=== PATIENT | male | born 1965 | race African-American/Black ===

== ENCOUNTER 2017-10-18 10:41 | Emergency (ER) | payer MEDICAID, OTHER | END 2017-10-18 11:48 | disposition home or self-care (01) | LOC: ERS 10:41 | DX: R11.2 Nausea with vomiting, unspecified (principal); E11.9 Type 2 diabetes mellitus without complications; I10 Essential (primary) hypertension; F17.210 Nicotine dependence, cigarettes, uncomplicated; Z99.2 Dependence on renal dialysis | CPT/HCPCS: 99283 ==

== ENCOUNTER 2017-12-23 14:13 | Outpatient (CLI) | payer OTHER ==
--- NOTE | 2017-12-23 14:41 | RAD ---
PA AND LATERAL CHEST: History: Productive cough. FINDINGS: Comparison is made with exam dated 07-22-16. The heart is enlarged. The lungs are well expanded without focal areas of consolidation, pneumothorax , renée pulmonary edema or pleural effusions. No acute osseous abnormalities are seen. IMPRESSION: No acute process. POS: OFF
== END 2017-12-23 14:14 | disposition home or self-care (01) ==
LOC: RAD 14:13
PROVIDERS: ATTEND Internal Medicine Nephrology
DX: R05 Cough (principal)
CPT/HCPCS: 71046

== ENCOUNTER 2020-07-30 11:10 | Emergency (ER) | payer OTHER ==
--- NOTE | 2020-07-30 12:06 | RAD ---
Chest one view HISTORY: Chest pain. COMPARISON: 07/22/2016. FINDINGS: Cardiac silhouette is magnified and enlarged. Pulmonary vasculature is unremarkable. Mediastinum is midline. No lobar consolidation or evidence of pneumothorax. IMPRESSION : Cardiomegaly, stable.
[2020-07-30 12:21] LABS: #Basophils 0.1 thou/uL (0.0-0.2); #Eosinphils 0.2 thou/uL (0.0-0.7); #Lymphocytes 1.2 thou/uL (1.20-3.40); #Monocytes 0.6 thou/uL (0.11-0.59); #Neutrophils 4.3 thou/uL (1.40-6.50); %Basophils 0.9 % (0.0-1.0); %Eosinophils 2.4 % (0.0-10.0); %Lymphocytes 19.2 % (21.0-51.0); %Monocytes 9.8 % (0.0-10.0); %Neutrophils 67.7 % (42.0-75.0); Hemoglobin 11.4 g/dL (14.0-18.0); Mean Corpuscular HGB CONC 34.2 g/dL (32.0-36.0); Mean Corpuscular Hemoglobin 29.9 pg (27.0-31.0); Mean Corpuscular Volume 87.5 fL (78.0-98.0); Mean Platelet Volume 7.5 fL (7.4-10.4); Platelet Count 272 thou/uL (130-400); RBC Distribution Width 13.5 % (11.5-14.5); White Blood Cell (WBC) Count 6.4 thou/uL (4.8-10.8)
[2020-07-30 12:25] LABS: ALT (SGPT) 20 U/L (8-55); AST (SGOT) 26 U/L (5-34); Albumin 4.1 g/dL (3.5-5.0); Alkaline Phosphatase 58 U/L (40-110); Anion Gap 20 mmol/L (10-20); BUN (Urea Nitrogen) 52 mg/dL (8.4-25.7); Bilirubin, Total 0.4 mg/dL (0.2-1.2); CK (CPK) 961 U/L (30-200); Calc. Creatinine Clearance 0 mL/min (70-130); Calcium 9.2 mg/dL (7.8-10.44); Carbon Dioxide 26 mmol/L (22-29); Chloride 96 mmol/L (98-107); Estimated GFR-MDRD 5; Globulin 3.4 g/dL (2.4-3.5); Glucose 117 mg/dL (70-105); Potassium 4.4 mmol/L (3.5-5.1); Protein, Total 7.5 g/dL (6.0-8.3); Sodium 138 mmol/L (136-145)
[2020-07-30 12:59] LABS: CKMB 7.3 ng/mL (0-6.6)
== END 2020-07-30 15:05 | disposition left against medical advice (07) ==
LOC: ERS 11:10 → EEVIPCON 11:10 → ERS 15:05
DX: K92.1 Melena (principal); E11.22 Type 2 diabetes mellitus with diabetic chronic kidney disease; I13.2 Hypertensive heart and chronic kidney disease with heart failure and with stage 5 chronic kidney disease, or end stage renal disease; I50.9 Heart failure, unspecified; N18.6 End stage renal disease; R07.89 Other chest pain; Z99.2 Dependence on renal dialysis; F17.210 Nicotine dependence, cigarettes, uncomplicated; Z79.899 Other long term (current) drug therapy
CPT/HCPCS: 36415; 71045; 80053; 82550; 82553; 83880; 84484; 85025; 86850; 86900; 86901; 93005

== ENCOUNTER 2020-12-11 16:26 | Emergency (ER) | payer OTHER ==
--- NOTE | 2020-12-11 17:41 | RAD ---
XR Knee Rt 4 View STANDARD: 12/11/2020 5:25 PM CLINICAL INDICATION: History of stepping off a step and jarring the right knee with right knee pain a nd swelling since COMPARISON: None. FINDINGS: Bones: There is diffuse osteopenia. No definite displaced fracture is evident. Joints: There is mild joint capsular distention. There are small marginal osteophytes affecting the m ajor compartments of the right knee. No definite displaced fracture is evident.. Soft Tissue: There are severe vascular calcifications seen involving the visualized vasculature.. IMPRESSION: No definite acute fracture demonstrated. There is mild joint capsular distention. If there is concern for internal derangement, further evaluation with a nonemergent MRI of the right knee may be helpful.
[2020-12-11] MEDS ORDERED: Acetaminophen/Codeine 30-300mg Tablet ONE (18:51)
== END 2020-12-11 18:50 | disposition home or self-care (01) ==
LOC: ERS 16:26
DX: M25.561 Pain in right knee (principal); E11.9 Type 2 diabetes mellitus without complications; I11.0 Hypertensive heart disease with heart failure; I50.9 Heart failure, unspecified; F17.210 Nicotine dependence, cigarettes, uncomplicated; X50.1XXA Overexertion from prolonged static or awkward postures, initial encounter

== ENCOUNTER 2021-03-11 08:51 | Emergency (ER) | payer OTHER ==
[2021-03-11] MEDS ORDERED: Cyclobenzaprine 10 MG TAB ONE (09:20)
== END 2021-03-11 10:42 | disposition home or self-care (01) ==
LOC: ERS 08:51
DX: S00.93XA Contusion of unspecified part of head, initial encounter (principal); M54.2 Cervicalgia; E11.9 Type 2 diabetes mellitus without complications; I11.0 Hypertensive heart disease with heart failure; I50.9 Heart failure, unspecified; F17.210 Nicotine dependence, cigarettes, uncomplicated; V89.2XXA Person injured in unspecified motor-vehicle accident, traffic, initial encounter
CPT/HCPCS: 70450; 72125

== ENCOUNTER 2021-04-24 16:06 | Emergency (ER) | payer OTHER ==
[2021-04-24] MEDS ORDERED: Oxymetazoline HCl 0.05% (30 ML BOT) ONE (17:43)
== END 2021-04-24 18:35 | disposition home or self-care (01) ==
LOC: ERS 16:06
DX: R04.0 Epistaxis (principal); I13.2 Hypertensive heart and chronic kidney disease with heart failure and with stage 5 chronic kidney disease, or end stage renal disease; E11.22 Type 2 diabetes mellitus with diabetic chronic kidney disease; N18.6 End stage renal disease; J45.909 Unspecified asthma, uncomplicated; I50.9 Heart failure, unspecified; F17.210 Nicotine dependence, cigarettes, uncomplicated; I25.10 Atherosclerotic heart disease of native coronary artery without angina pectoris; Z99.2 Dependence on renal dialysis
CPT/HCPCS: 99283

== ENCOUNTER 2021-05-05 10:52 | Inpatient (IN) | payer OTHER ==
[2021-05-06 03:11] VITALS: BMI 29.6
[2021-05-09 14:51] VITALS: BP 151/74
[2021-05-09 15:32] VITALS: TEMP 98.1
== END 2021-05-09 19:35 | disposition home or self-care (01) | DRG 377 ==
LOC: ERS 10:52 → ERHOLD 12:52 → OBSVTOIN 12:52 → 2NO 21:55
PROVIDERS: ADMIT Family Medicine; ATTEND Family Medicine
PROC: 5A1D70Z Performance of Urinary Filtration, Intermittent, Less than 6 Hours Per Day (ICD-10-PCS; principal; 2021-05-04)
PROC: 0DB78ZX Excision of Stomach, Pylorus, Via Natural or Artificial Opening Endoscopic, Diagnostic (ICD-10-PCS; 2021-05-08)
PROC: 0DBL8ZZ Excision of Transverse Colon, Via Natural or Artificial Opening Endoscopic (ICD-10-PCS; 2021-05-09)
DX: K29.61 Other gastritis with bleeding (principal); N18.6 End stage renal disease; I13.2 Hypertensive heart and chronic kidney disease with heart failure and with stage 5 chronic kidney disease, or end stage renal disease; D62 Acute posthemorrhagic anemia; I50.22 Chronic systolic (congestive) heart failure; B48.8 Other specified mycoses; E11.22 Type 2 diabetes mellitus with diabetic chronic kidney disease; K21.9 Gastro-esophageal reflux disease without esophagitis; I44.0 Atrioventricular block, first degree; F17.210 Nicotine dependence, cigarettes, uncomplicated; K42.9 Umbilical hernia without obstruction or gangrene; D63.1 Anemia in chronic kidney disease; H57.11 Ocular pain, right eye; E11.319 Type 2 diabetes mellitus with unspecified diabetic retinopathy without macular edema; J32.8 Other chronic sinusitis; K64.8 Other hemorrhoids; K63.5 Polyp of colon; E83.52 Hypercalcemia; E83.39 Other disorders of phosphorus metabolism; Z95.5 Presence of coronary angioplasty implant and graft; Z99.2 Dependence on renal dialysis
CPT/HCPCS: 36415; 36416; 70486; 70487; 71045; 78452; 80048; 80053; 80061; 80069; 82553; 82728; 83036; 83540; 83550; 83735; 84100; 84443; 84484; 85025; 85027; 86850; 86900; 86901; 88305; 88342; 90935; 93005; 93017; 94760; 96374; 96375; 96376; A9500; C9113; G0257; G0378; J0289; J0295; J1815; J2248; J2270; J2405; J2704; J2916; J3490; J7070; Q0169; Q5105; Q9967

== ENCOUNTER 2022-07-12 20:05 | Emergency (ER) | payer OTHER ==
[2022-07-12] MEDS ORDERED: Ondansetron PF 4 MG/2 ML Vial ONE (20:14)
[2022-07-12] MEDS ORDERED: Morphine 4 MG/ML VIAL ONE (20:14)
[2022-07-12] MEDS ORDERED: PROPOFOL 20 ML ONE (20:48)
== END 2022-07-12 22:16 | disposition home or self-care (01) ==
LOC: ERS 20:05
DX: K42.0 Umbilical hernia with obstruction, without gangrene (principal); I13.0 Hypertensive heart and chronic kidney disease with heart failure and stage 1 through stage 4 chronic kidney disease, or unspecified chronic kidney disease; E11.22 Type 2 diabetes mellitus with diabetic chronic kidney disease; N18.9 Chronic kidney disease, unspecified; I50.9 Heart failure, unspecified; F17.210 Nicotine dependence, cigarettes, uncomplicated; Z99.2 Dependence on renal dialysis; Z95.5 Presence of coronary angioplasty implant and graft
CPT/HCPCS: 96374; 96375; 99152; J2270; J2405; J2704

== ENCOUNTER 2022-10-06 18:08 | Observation (INO) | payer OTHER ==
[2022-10-06 20:13] LABS: #Eosinphils 0.4 thou/uL (0.0-0.7); #Lymphocytes 1.3 thou/uL (1.20-3.40); #Monocytes 0.6 thou/uL (0.11-0.59); #Neutrophils 7.6 thou/uL (1.40-6.50); %Basophils 0.4 % (0.0-1.0); %Eosinophils 3.7 % (0.0-10.0); %Lymphocytes 13.2 % (21.0-51.0); %Monocytes 6.2 % (0.0-10.0); %Neutrophils 76.6 % (42.0-75.0); Mean Corpuscular HGB CONC 31.6 g/dL (32.0-36.0); Mean Corpuscular Hemoglobin 25.9 pg (27.0-31.0); Mean Corpuscular Volume 82.2 fl (78.0-98.0); Mean Platelet Volume 9.6 fL (7.4-10.4); Platelet Count 225 10x3/uL (130-400); Red Blood Cell (RBC) Count 5.02 mill/uL (4.70-6.10)
[2022-10-06 20:37] LABS: ALT (SGPT) 28 U/L (8-55); AST (SGOT) 53 U/L (5-34); Albumin 4.8 g/dL (3.5-5.0); Alkaline Phosphatase 137 U/L (40-110); Anion Gap 26 mmol/L (10-20); BUN (Urea Nitrogen) 50 mg/dL (8.4-25.7); Bilirubin, Total 0.6 mg/dL (0.2-1.2); Calc. Creatinine Clearance 0 mL/min (70-130); Calcium 10.3 mg/dL (7.8-10.44); Carbon Dioxide 18 mmol/L (22-29); Chloride 99 mmol/L (98-107); Estimated GFR 4; Glucose 84 mg/dL (70-105); Lipase 55 U/L (8-78); Potassium 5.9 mmol/L (3.5-5.1); Protein, Total 8.8 g/dL (6.0-8.3); Sodium 137 mmol/L (136-145)
[2022-10-06] MEDS ORDERED: Labetalol HCl 100 MG TAB ONE (20:44)
[2022-10-06] MEDS ORDERED: HYDROcodone/Acetaminophen 5/325 mg Tablet ONE (20:49)
[2022-10-06] MEDS ORDERED: Diazepam 5 MG TAB ONE (20:49)
[2022-10-06] MEDS ORDERED: Ondansetron ODT 4 MG TAB ONE (21:37)
[2022-10-06] MEDS ORDERED: LOKELMA 10 GM PACKET PO SCH (22:00)
[2022-10-06] MEDS ORDERED: Nitroglycerin 2% Ointment 1 INCH/1 GM Packet ONE (22:01)
[2022-10-06 22:55] LABS: Bacteria/HPF None Seen HPF (None Seen); Bilirubin Negative (Negative); Blood, Urine 1+ (Negative); Clarity Clear (Clear); Glucose, Urine (Dipstick) 100 mg/dL (Negative); Ketone, Urine Negative (Negative); Leukocyte Negative Leu/uL (Negative); Nitrite Negative (Negative); Protein, Urine (Dipstick) 200 mg/dL (Neg-Trace); RBC/HPF 0-3 HPF (0-3); Specific Gravity, Urine 1.011 (1.002-1.036); Squamous Epithelial 0-3 HPF (0-3); Urobilinogen Normal mg/dL (Less than 2); WBC/HPF 0-3 HPF (0-3)
[2022-10-06 22:56] LABS: Sperm/HPF 3+ HPF (None Seen)
[2022-10-06] MEDS ORDERED: Acetaminophen 325 MG TAB PO PRN (23:24)
[2022-10-06] MEDS ORDERED: Ondansetron PF 4 MG/2 ML Vial IVP PRN (23:24)
[2022-10-06] MEDS ORDERED: Ondansetron ODT 4 MG TAB PO PRN (23:24)
[2022-10-07] MEDS ORDERED: tiZANidine HCl 4 MG TAB PO SCH (01:00)
[2022-10-07] MEDS ORDERED: Acetaminophen 325 MG TAB ONE (03:18)
[2022-10-07] MEDS ORDERED: Nitroglycerin 2% Ointment 1 INCH/1 GM Packet ONE (03:43)
[2022-10-07] MEDS ORDERED: Nitroglycerin 2% Ointment 1 INCH/1 GM Packet TOP SCH (04:00)
[2022-10-07 04:58] LABS: Anion Gap 19 mmol/L (10-20); BUN (Urea Nitrogen) 55 mg/dL (8.4-25.7); Calc. Creatinine Clearance 0 mL/min (70-130); Calcium 9.8 mg/dL (7.8-10.44); Carbon Dioxide 24 mmol/L (22-29); Chloride 96 mmol/L (98-107); Estimated GFR 4; Glucose 119 mg/dL (70-105); Potassium 4.4 mmol/L (3.5-5.1); Sodium 135 mmol/L (136-145)
[2022-10-07] MEDS ORDERED: Minoxidil 10 MG TAB PO SCH (09:00)
[2022-10-07] MEDS ORDERED: NIFEdipine XL 30 MG TAB PO SCH (09:00)
[2022-10-07] MEDS ORDERED: NIFEdipine XL 60 MG TAB PO SCH (09:00)
[2022-10-07 09:21] LABS: HBSAg Index 0.42 S/CO (0-0.99); Hep B Core Total Ab Non-Reactive (NonReactive); Hep B Surf Ag Non-Reactive S/CO (NonReactive); Hep C IgG Ab Non-Reactive (NonReactive); Hep C Index 0.13 S/CO (0-0.79)
[2022-10-07 09:29] LABS: HBSAB Concentration 29.59 mIU/mL; Hep B Surf AB Reactive (NonReactive)
[2022-10-07] MEDS ORDERED: Heparin 10,000 UNITS/ 10 ML VIAL ONE (10:23)
[2022-10-07] MEDS: Brimonidine Tartrate 0.2% Ophth Soln 5 ml Bottle EA EYE SCH ×2 (10:53→23:11)
[2022-10-07] MEDS: DorzolamidE/Timolol 2%/0.5% Ophth Soln 10 ml Bottle EA EYE SCH ×2 (10:54→23:29)
[2022-10-07] MEDS: Labetalol HCl 100 MG TAB PO SCH ×2 (10:55→21:29)
[2022-10-07] MEDS: Heparin 5,000 UNITS/ML VIAL SC SCH ×3 (10:55→21:30)
[2022-10-07] MEDS: prednisoLONE 1% Ophth Susp 5 ml Bottle L EYE SCH ×2 (10:56→23:03)
[2022-10-07] MEDS: NIFEdipine XL 30 MG TAB PO SCH (10:56)
[2022-10-07] MEDS: Minoxidil 10 MG TAB PO SCH (10:56)
[2022-10-07] MEDS: Sevelamer Carbonate 800 MG TAB PO SCH ×3 (10:56→21:30)
[2022-10-07] MEDS: Torsemide 100 MG TAB PO SCH (10:57)
[2022-10-07] MEDS: tiZANidine HCl 4 MG TAB PO SCH (10:57)
[2022-10-07] MEDS ORDERED: Dextrose 50% Abboject 50 ML SYRINGE SLOW IVP PRN (11:59)
[2022-10-07] MEDS ORDERED: HumaLOG 300 UNITS/3 ML VIAL SC PRN ×2 (11:59)
[2022-10-07] MEDS ORDERED: Dextrose 5% in Water 1,000 ML IV PRN (11:59)
[2022-10-07] MEDS ORDERED: Gabapentin 300 MG CAP PO SCH (12:15)
[2022-10-07] MEDS ORDERED: Atorvastatin Calcium 40 MG TAB PO SCH (21:00)
[2022-10-08 05:53] LABS: Anion Gap 17 mmol/L (10-20); BUN (Urea Nitrogen) 35 mg/dL (8.4-25.7); Calc. Creatinine Clearance 13 mL/min (70-130); Calcium 9.7 mg/dL (7.8-10.44); Carbon Dioxide 28 mmol/L (22-29); Chloride 93 mmol/L (98-107); Estimated GFR 6; Glucose 97 mg/dL (70-105); Potassium 3.9 mmol/L (3.5-5.1); Sodium 134 mmol/L (136-145)
[2022-10-08 07:21] LABS: #Eosinphils 0.3 thou/uL (0.0-0.7); #Lymphocytes 1.3 thou/uL (1.20-3.40); #Monocytes 0.6 thou/uL (0.11-0.59); #Neutrophils 3.2 thou/uL (1.40-6.50); %Basophils 0.8 % (0.0-1.0); %Eosinophils 5.9 % (0.0-10.0); %Lymphocytes 23.5 % (21.0-51.0); %Monocytes 10.9 % (0.0-10.0); %Neutrophils 58.9 % (42.0-75.0); Hemoglobin 11.9 g/dL (14.0-18.0); Mean Corpuscular HGB CONC 30.6 g/dL (32.0-36.0); Mean Corpuscular Hemoglobin 25.3 pg (27.0-31.0); Mean Corpuscular Volume 82.7 fl (78.0-98.0); Mean Platelet Volume 9.2 fL (7.4-10.4); Platelet Count 259 10x3/uL (130-400); RBC Distribution Width 17.5 % (11.5-14.5); White Blood Cell (WBC) Count 5.4 10x3/uL (4.8-10.8)
[2022-10-08] MEDS: Brimonidine Tartrate 0.2% Ophth Soln 5 ml Bottle EA EYE SCH (09:09)
[2022-10-08] MEDS: Minoxidil 10 MG TAB PO SCH (09:10)
[2022-10-08] MEDS: Labetalol HCl 100 MG TAB PO SCH (09:10)
[2022-10-08] MEDS: NIFEdipine XL 30 MG TAB PO SCH ×2 (09:10→13:17)
[2022-10-08] MEDS: Sevelamer Carbonate 800 MG TAB PO SCH (09:11)
[2022-10-08] MEDS: tiZANidine HCl 4 MG TAB PO SCH (09:11)
[2022-10-08] MEDS: Heparin 5,000 UNITS/ML VIAL SC SCH (09:18)
[2022-10-08] MEDS ORDERED: hydrOXYzine 25 MG TAB PO PRN (09:47)
[2022-10-08] MEDS: Torsemide 100 MG TAB PO SCH (10:18)
[2022-10-08] MEDS: DorzolamidE/Timolol 2%/0.5% Ophth Soln 10 ml Bottle EA EYE SCH (10:19)
[2022-10-08 12:11] VITALS: BMI 30.9
[2022-10-08 12:43] VITALS: BP 123/62; TEMP 99.1
[2022-10-08] MEDS: prednisoLONE 1% Ophth Susp 5 ml Bottle L EYE SCH (13:17)
== END 2022-10-08 15:10 | disposition home or self-care (01) ==
LOC: ERS 18:08 → ERHOLD 22:01 → 2SW 10-07 15:56
PROVIDERS: ADMIT Family Medicine; ATTEND Family Medicine
DX: I16.0 Hypertensive urgency (principal); M62.830 Muscle spasm of back; I12.0 Hypertensive chronic kidney disease with stage 5 chronic kidney disease or end stage renal disease; E11.22 Type 2 diabetes mellitus with diabetic chronic kidney disease; N18.6 End stage renal disease; D63.1 Anemia in chronic kidney disease; E87.5 Hyperkalemia; K42.9 Umbilical hernia without obstruction or gangrene; E78.5 Hyperlipidemia, unspecified; I25.10 Atherosclerotic heart disease of native coronary artery without angina pectoris; G89.29 Other chronic pain; M54.9 Dorsalgia, unspecified; F17.210 Nicotine dependence, cigarettes, uncomplicated; E83.39 Other disorders of phosphorus metabolism; Z79.899 Other long term (current) drug therapy; Z95.5 Presence of coronary angioplasty implant and graft; Z99.2 Dependence on renal dialysis; Z20.822 Contact with and (suspected) exposure to COVID-19
CPT/HCPCS: 36415; 36416; 72128; 72131; 80048; 80053; 81003; 81015; 83690; 83880; 85025; 86704; 93005; G0378; J1644; Q0162; U0003; U0005

== ENCOUNTER 2022-12-25 05:56 | Day surgery (SDC) | payer OTHER ==
[2022-12-23 16:03] VITALS: BMI 30.5
[2022-12-25] MEDS ORDERED: CEFAZOLIN 2 GM VIAL ONE (06:40)
[2022-12-25] MEDS ORDERED: Gabapentin 300 MG CAP ONE (06:40)
[2022-12-25] MEDS ORDERED: Sodium Chloride 0.9% 100 ML ONE (06:40)
[2022-12-25] MEDS ORDERED: Bupivacaine/Epinephrine 0.25% 30 ML VIAL ONE (06:54)
[2022-12-25] MEDS ORDERED: Ketamine 50 MG/ML (10ML VIAL) ONE (07:18)
[2022-12-25] MEDS ORDERED: fentaNYL PF 100 MCG/2 ML SYRINGE ONE (07:18)
[2022-12-25 07:19] LABS: #Eosinphils 0.8 thou/uL (0.0-0.7); #Lymphocytes 1.5 thou/uL (1.20-3.40); #Monocytes 0.9 thou/uL (0.11-0.59); #Neutrophils 3.6 thou/uL (1.40-6.50); %Basophils 0.1 % (0.0-1.0); %Lymphocytes 22.4 % (21.0-51.0); %Monocytes 13.8 % (0.0-10.0); %Neutrophils 52.7 % (42.0-75.0); Hemoglobin 11.1 g/dL (14.0-18.0); Mean Corpuscular HGB CONC 31.7 g/dL (32.0-36.0); Mean Corpuscular Hemoglobin 26.2 pg (27.0-31.0); Mean Corpuscular Volume 82.8 fl (78.0-98.0); Mean Platelet Volume 9.5 fL (7.4-10.4); Platelet Count 244 10x3/uL (130-400); RBC Distribution Width 20.9 % (11.5-14.5); Red Blood Cell (RBC) Count 4.24 mill/uL (4.70-6.10); White Blood Cell (WBC) Count 6.8 10x3/uL (4.8-10.8)
[2022-12-25] MEDS ORDERED: HYDROmorphone 0.5 MG/0.5 ML SYRINGE ONE (07:19)
[2022-12-25] MEDS ORDERED: SUGAMMADEX SODIUM 200 MG/2 ML VIAL ONE (07:20)
[2022-12-25] MEDS ORDERED: Dexamethasone 20 MG/5 ML VIAL ONE (07:29)
[2022-12-25] MEDS ORDERED: Rocuronium Bromide 10 MG/ML (10ML VIAL) ONE (07:29)
[2022-12-25] MEDS ORDERED: Lidocaine 1% PF 5 ML VIAL ONE (07:29)
[2022-12-25] MEDS ORDERED: PROPOFOL 200 MG/20 ML VIAL ONE (07:29)
[2022-12-25] MEDS ORDERED: Ondansetron PF 4 MG/2 ML Vial ONE (07:29)
[2022-12-25 07:40] LABS: Anion Gap 21 mmol/L (10-20); BUN (Urea Nitrogen) 45 mg/dL (8.4-25.7); Calc. Creatinine Clearance 10 mL/min (70-130); Calcium 9.2 mg/dL (7.8-10.44); Carbon Dioxide 25 mmol/L (22-29); Chloride 97 mmol/L (98-107); Estimated GFR 5; Glucose 113 mg/dL (70-105); Potassium 4.5 mmol/L (3.5-5.1); Sodium 138 mmol/L (136-145)
[2022-12-25] MEDS ORDERED: Fentanyl 100 MCG/2 ML VIAL ONE ×2 (09:37→10:26)
[2022-12-25] MEDS ORDERED: Promethazine HCl 25 MG/ML VIAL ONE (09:40)
[2022-12-25] MEDS ORDERED: HYDROcodone/Acetaminophen 5/325 mg Tablet ONE (11:24)
== END 2022-12-25 12:03 | disposition home or self-care (01) ==
LOC: SDC 05:56
PROVIDERS: ATTEND Specialist
PROC: 0YUA4JZ Supplement Bilateral Inguinal Region with Synthetic Substitute, Percutaneous Endoscopic Approach (ICD-10-PCS; principal; 2022-12-25)
PROC: 0WUF4JZ Supplement Abdominal Wall with Synthetic Substitute, Percutaneous Endoscopic Approach (ICD-10-PCS; principal; 2022-12-25)
PROC: 8E0W4CZ Robotic Assisted Procedure of Trunk Region, Percutaneous Endoscopic Approach (ICD-10-PCS; principal; 2022-12-25)
DX: K40.20 Bilateral inguinal hernia, without obstruction or gangrene, not specified as recurrent (principal); K42.9 Umbilical hernia without obstruction or gangrene; I12.0 Hypertensive chronic kidney disease with stage 5 chronic kidney disease or end stage renal disease; E11.22 Type 2 diabetes mellitus with diabetic chronic kidney disease; N18.6 End stage renal disease; I25.10 Atherosclerotic heart disease of native coronary artery without angina pectoris; Z79.899 Other long term (current) drug therapy; Z99.2 Dependence on renal dialysis
CPT/HCPCS: 80048; 85025; C1781; J1170; J2550; J3010; J3490

== ENCOUNTER 2023-02-02 16:45 | Emergency (ER) | payer OTHER ==
[2023-02-02] MEDS ORDERED: Acetaminophen 500 MG TAB ONE (19:16)
[2023-02-02] MEDS ORDERED: Ketorolac Tromethamine 30 MG/ML VIAL ONE (19:16)
== END 2023-02-02 19:58 | disposition home or self-care (01) ==
LOC: ERS 16:45
DX: S43.402A Unspecified sprain of left shoulder joint, initial encounter (principal); S83.92XA Sprain of unspecified site of left knee, initial encounter; I13.2 Hypertensive heart and chronic kidney disease with heart failure and with stage 5 chronic kidney disease, or end stage renal disease; E11.22 Type 2 diabetes mellitus with diabetic chronic kidney disease; N18.6 End stage renal disease; I50.9 Heart failure, unspecified; J45.909 Unspecified asthma, uncomplicated; F17.210 Nicotine dependence, cigarettes, uncomplicated; Z99.2 Dependence on renal dialysis; W01.0XXA Fall on same level from slipping, tripping and stumbling without subsequent striking against object, initial encounter
CPT/HCPCS: 96372; J1885

== ENCOUNTER 2024-03-02 08:07 | Emergency (ER) | payer OTHER | END 2024-03-02 10:21 | disposition home or self-care (01) | LOC: ERS 08:07 | DX: S80.12XA Contusion of left lower leg, initial encounter (principal); M79.89 Other specified soft tissue disorders; R59.0 Localized enlarged lymph nodes; I11.0 Hypertensive heart disease with heart failure; I50.9 Heart failure, unspecified; E11.9 Type 2 diabetes mellitus without complications; X58.XXXA Exposure to other specified factors, initial encounter; Z99.2 Dependence on renal dialysis; Z87.891 Personal history of nicotine dependence; Z79.4 Long term (current) use of insulin; Z79.899 Other long term (current) drug therapy; Z95.5 Presence of coronary angioplasty implant and graft ==

== ENCOUNTER 2024-11-12 17:23 | Emergency (ER) | payer OTHER ==
[2024-11-12] MEDS ORDERED: Benzonatate 100 MG CAP ONE (19:16)
[2024-11-12] MEDS ORDERED: Acetaminophen 500 MG TAB ONE (19:16)
== END 2024-11-12 20:15 | disposition home or self-care (01) ==
LOC: ERS 17:23
DX: J11.1 Influenza due to unidentified influenza virus with other respiratory manifestations (principal); I13.2 Hypertensive heart and chronic kidney disease with heart failure and with stage 5 chronic kidney disease, or end stage renal disease; E11.22 Type 2 diabetes mellitus with diabetic chronic kidney disease; N18.6 End stage renal disease; I50.9 Heart failure, unspecified; Z99.2 Dependence on renal dialysis; Z95.5 Presence of coronary angioplasty implant and graft; Z87.891 Personal history of nicotine dependence
CPT/HCPCS: 71046; 87081; 87428; 87430

== ENCOUNTER 2025-06-01 15:42 | Inpatient (IN) | payer MEDICAID ==
[~2025-06-01 15:42] MED LIST: Iopamidol-370 76% 500 ML MDV (1 ML CHARGE) ONE
[2025-06-01 16:12] LABS: #Basophils Less than 0.03 10x3/uL (0.0-0.2); #Eosinophils 0.67 10x3/uL (0.0-0.7); #Monocytes 0.69 10x3/uL (0.11-0.59); #Neutrophils 2.81 10x3/uL (1.40-6.50); %Basophils 0.4 % (0.0-1.0); %Eosinophils 12.8 % (0.0-10.0); %Lymphocytes 19.7 % (21.0-51.0); %Monocytes 13.2 % (0.0-10.0); %Neutrophils 53.9 % (42.0-75.0); Hematocrit 35.4 % (42.0-52.0); Hemoglobin 11.3 g/dL (14.0-18.0); Mean Corpuscular Hemoglobin 28.8 pg (27.0-31.0); Mean Corpuscular Volume 90.1 fL (78.0-98.0); Platelet Count 170 10x3/uL (130-400); Red Blood Cell (RBC) Count 3.93 mill/uL (4.70-6.10); White Blood Cell (WBC) Count 5.22 10x3/uL (4.8-10.8)
[2025-06-01 16:26] LABS: ALT (SGPT) 25 U/L (Less than 45); AST (SGOT) 38 U/L (11-34); Albumin 4.0 g/dL (3.1-4.5); Alkaline Phosphatase 129 U/L (40-110); Anion Gap 17 mmol/L (10-20); BUN (Urea Nitrogen) 29 mg/dL (8.4-25.7); Bilirubin, Total 0.6 mg/dL (0.3-1.2); Calc. Creatinine Clearance 0 mL/min (70-130); Calcium 9.4 mg/dL (7.8-10.44); Carbon Dioxide 30 mmol/L (22-29); Chloride 96 mmol/L (98-107); Globulin 3.9 g/dL (2.4-3.5); Glucose 160 mg/dL (70-105); Potassium 3.8 mmol/L (3.5-5.1); Sodium 139 mmol/L (136-145)
[2025-06-01] MEDS ORDERED: Nitroglycerin 2% Ointment 1 INCH/1 GM Packet ONE (17:09)
[2025-06-01] MEDS ORDERED: Aspirin Chewable 81 MG TAB ONE (18:29)
[2025-06-01] MEDS ORDERED: Enoxaparin 100 MG (1 mL) SYRINGE ONE (18:58)
[2025-06-01 19:31] LABS: INR-International Normal Ratio 1.1; Prothrombin Time 14.5 sec (12.0-14.7)
[2025-06-01] MEDS ORDERED: Heparin 5,000 UNITS/ML VIAL ONE (19:31)
[2025-06-01 19:32] LABS: PTT 44.5 sec (22.9-36.1)
[2025-06-01] MEDS ORDERED: Dextrose 50% Abboject 50 ML SYRINGE SLOW IVP PRN (19:42)
[2025-06-01] MEDS ORDERED: Glucagon 1 MG/ML KIT IM PRN (19:42)
[2025-06-01 20:25] LABS: Hematocrit 35.4 % (42.0-52.0); Hemoglobin 11.0 g/dL (14.0-18.0); Platelet Count 172 10x3/uL (130-400)
[2025-06-01 20:47] LABS: PTT 196.8 sec (22.9-36.1)
[2025-06-01 23:14] LABS: Cardiac Risk 2.1 (Less than 4.5); Cholesterol 103.0 mg/dl (< 200 Desired); HDL Cholesterol 49.0 mg/dL (>60 Neg Risk); LDL Cholesterol, Calculated 38.0 mg/dL; Triglycerides 81.0 mg/dL (Less than 150)
[2025-06-01 23:31] VITALS: BMI 29.2
[2025-06-02] MEDS: Acetaminophen 325 MG TAB PO PRN (00:26)
[2025-06-02 05:24] LABS: #Basophils 0.03 10x3/uL (0.0-0.2); #Eosinophils 0.84 10x3/uL (0.0-0.7); #Monocytes 0.81 10x3/uL (0.11-0.59); #Neutrophils 2.79 10x3/uL (1.40-6.50); %Basophils 0.5 % (0.0-1.0); %Eosinophils 15.3 % (0.0-10.0); %Lymphocytes 18.2 % (21.0-51.0); %Monocytes 14.8 % (0.0-10.0); %Neutrophils 51.0 % (42.0-75.0); Hematocrit 34.8 % (42.0-52.0); Hemoglobin 11.0 g/dL (14.0-18.0); Mean Corpuscular Hemoglobin 28.9 pg (27.0-31.0); Mean Corpuscular Volume 91.6 fL (78.0-98.0); Platelet Count 168 10x3/uL (130-400); Red Blood Cell (RBC) Count 3.80 mill/uL (4.70-6.10); White Blood Cell (WBC) Count 5.48 10x3/uL (4.8-10.8)
[2025-06-02 05:58] LABS: ALT (SGPT) 23 U/L (Less than 45); AST (SGOT) 38 U/L (11-34); Albumin 3.7 g/dL (3.1-4.5); Alkaline Phosphatase 149 U/L (40-110); Anion Gap 17 mmol/L (10-20); BUN (Urea Nitrogen) 39 mg/dL (8.4-25.7); Bilirubin, Total 0.5 mg/dL (0.3-1.2); Calc. Creatinine Clearance 13 mL/min (70-130); Calcium 9.4 mg/dL (7.8-10.44); Carbon Dioxide 29 mmol/L (22-29); Chloride 96 mmol/L (98-107); Globulin 3.7 g/dL (2.4-3.5); Glucose 105 mg/dL (70-105); Potassium 3.9 mmol/L (3.5-5.1); Sodium 138 mmol/L (136-145)
[2025-06-02] MEDS: Heparin 10,000 UNITS/ 10 ML VIAL SLOW IVP SCH (10:23)
[2025-06-02] MEDS: Aspirin 81 mg Enteric Coated Tablet PO SCH (11:28)
[2025-06-02] MEDS: Nitroglycerin 2% Ointment 1 INCH/1 GM Packet TOP SCH (11:28)
[2025-06-02] MEDS ORDERED: Iopamidol 370 76% 100 ML VIAL ONE (12:00)
[2025-06-02] MEDS ORDERED: Nitroglycerin 50 MG/250 ML BOT 0 ML ONE (13:04)
[2025-06-02] MEDS ORDERED: Heparin 10,000 UNITS/ 10 ML VIAL ONE ×2 (13:04→14:51)
[2025-06-02] MEDS ORDERED: PHENYLEPHRINE-NS 100 MCG/ML 10 ML SYRINGE ONE (13:04)
[2025-06-02] MEDS ORDERED: EPINEPHrine 1 MG/10 ML Abboject SYRINGE ONE (13:04)
[2025-06-02] MEDS ORDERED: Adenosine 6 mg (2 mL) VIAL ONE (13:04)
[2025-06-02] MEDS ORDERED: Lidocaine 1% (PF) 30 ML VIAL ONE (13:04)
[2025-06-02] MEDS ORDERED: hydrALAZINE 20 MG/ML VIAL ONE (16:08)
[2025-06-02 17:57] LABS: PTT 169.5 sec (22.9-36.1)
[2025-06-02 19:58] VITALS: TEMP 98.6
[2025-06-02 23:36] VITALS: BP 176/89
[2025-06-03] MEDS ORDERED: Aspirin 81 mg Enteric Coated Tablet PO SCH (09:00)
== END 2025-06-03 00:45 | disposition short-term general hospital (02) | DRG 250 ==
LOC: ERS 15:42 → OBS 18:49 → OBSVTOIN 06-02 14:11
PROVIDERS: ADMIT Family Medicine; ATTEND Family Medicine
PROC: 02703ZZ Dilation of Coronary Artery, One Artery, Percutaneous Approach (ICD-10-PCS; principal; 2025-06-02)
PROC: 4A023N7 Measurement of Cardiac Sampling and Pressure, Left Heart, Percutaneous Approach (ICD-10-PCS; 2025-06-02)
PROC: B2111ZZ Fluoroscopy of Multiple Coronary Arteries using Low Osmolar Contrast (ICD-10-PCS; 2025-06-02)
DX: I21.4 Non-ST elevation (NSTEMI) myocardial infarction (principal); N18.6 End stage renal disease; I12.0 Hypertensive chronic kidney disease with stage 5 chronic kidney disease or end stage renal disease; I25.10 Atherosclerotic heart disease of native coronary artery without angina pectoris; K21.9 Gastro-esophageal reflux disease without esophagitis; D64.9 Anemia, unspecified; E11.22 Type 2 diabetes mellitus with diabetic chronic kidney disease; E78.5 Hyperlipidemia, unspecified; Z87.891 Personal history of nicotine dependence; Z98.890 Other specified postprocedural states; Z99.2 Dependence on renal dialysis; Z79.899 Other long term (current) drug therapy; I25.2 Old myocardial infarction; Z95.5 Presence of coronary angioplasty implant and graft
CPT/HCPCS: 36415; 36416; 71045; 71275; 80053; 80061; 83036; 83880; 84443; 84484; 85025; 85347; 85610; 85730; 92920; 93005; 93458; 94760; 96376; 99152; 99153; C1725; C1761; C1769; C1887; G0378; J0153; J0165; J0360; J0461; J1644; J1650; J2250; J3010; Q9967

== ENCOUNTER 2025-07-12 05:36 | Inpatient (IN) | payer MEDICAID ==
[2025-07-12 06:09] LABS: #Basophils Less than 0.03 10x3/uL (0.0-0.2); #Eosinophils 0.08 10x3/uL (0.0-0.7); #Monocytes 1.25 10x3/uL (0.11-0.59); #Neutrophils 14.00 10x3/uL (1.40-6.50); %Basophils 0.1 % (0.0-1.0); %Eosinophils 0.5 % (0.0-10.0); %Lymphocytes 3.5 % (21.0-51.0); %Monocytes 7.8 % (0.0-10.0); %Neutrophils 87.5 % (42.0-75.0); Hematocrit 31.5 % (42.0-52.0); Hemoglobin 10.1 g/dL (14.0-18.0); Mean Corpuscular Hemoglobin 29.0 pg (27.0-31.0); Mean Corpuscular Volume 90.5 fL (78.0-98.0); Platelet Count 223 10x3/uL (130-400); Red Blood Cell (RBC) Count 3.48 mill/uL (4.70-6.10); White Blood Cell (WBC) Count 16.00 10x3/uL (4.8-10.8)
[2025-07-12 06:37] LABS: ALT (SGPT) 24 U/L (Less than 45); AST (SGOT) 41 U/L (11-34); Albumin 4.0 g/dL (3.1-4.5); Alkaline Phosphatase 141 U/L (40-110); Anion Gap 22 mmol/L (10-20); BUN (Urea Nitrogen) 51 mg/dL (8.4-25.7); Bilirubin, Total 0.8 mg/dL (0.3-1.2); Calc. Creatinine Clearance 0 mL/min (70-130); Calcium 10.1 mg/dL (7.8-10.44); Carbon Dioxide 28 mmol/L (22-29); Chloride 91 mmol/L (98-107); Globulin 4.1 g/dL (2.4-3.5); Glucose 152 mg/dL (70-105); Potassium 4.0 mmol/L (3.5-5.1); Sodium 137 mmol/L (136-145)
[2025-07-12] MEDS ORDERED: cefTRIAXone (ROCEPHIN) 1 GM VIAL ONE (08:18)
[2025-07-12] MEDS ORDERED: Iopamidol-370 76% 500 ML MDV (1 ML CHARGE) ONE (10:51)
[2025-07-12] MEDS ORDERED: Iopamidol 370 76% 100 ML VIAL ONE (10:51)
[2025-07-12] MEDS ORDERED: Azithromycin 500 MG VIAL ONE (13:19)
[2025-07-12] MEDS: Azithromycin 500 MG in Sodium Chloride 0.9% 250 ML 250 ML IVPB SCH (13:19)
[2025-07-12] MEDS: Heparin 5,000 UNITS/ML VIAL SC SCH (13:20)
[2025-07-12] MEDS ORDERED: Heparin 5,000 UNITS/ML VIAL ONE (13:20)
[2025-07-12] MEDS ORDERED: Dextrose 50% Abboject 50 ML SYRINGE SLOW IVP PRN (15:45)
[2025-07-12] MEDS ORDERED: Glucagon 1 MG/ML KIT IM PRN (15:45)
[2025-07-12] MEDS: Gabapentin 100 MG CAP PO SCH (17:55)
[2025-07-12] MEDS: Enoxaparin 40 MG (0.4 mL) SYRINGE SC ONE (17:56)
[2025-07-12] MEDS: Piperacillin/Tazobactam 2.25 GM in Sodium Chloride 0.9% 100 ML IVPB SCH (17:56)
[2025-07-12 19:09] VITALS: BMI 29.6
[2025-07-12] MEDS: NIFEdipine XL 60 MG ER.TAB PO SCH (22:10)
[2025-07-12] MEDS: TICAGRELOR 90 MG TABLET PO SCH (22:10)
[2025-07-12] MEDS: DorzolamidE/Timolol 2%/0.5% Ophth Soln 10 ml Bottle EA EYE SCH ×2 (23:14→23:28)
[2025-07-12] MEDS: Brimonidine Tartrate 0.2% Ophth Soln 5 ml Bottle EA EYE SCH ×2 (23:14→23:28)
[2025-07-13] MEDS: Calcium Carbonate 500 MG ChewTAB PO PRN (01:34)
[2025-07-13 04:44] LABS: #Basophils 0.04 10x3/uL (0.0-0.2); #Eosinophils 0.25 10x3/uL (0.0-0.7); #Monocytes 1.44 10x3/uL (0.11-0.59); #Neutrophils 13.45 10x3/uL (1.40-6.50); %Basophils 0.2 % (0.0-1.0); %Eosinophils 1.6 % (0.0-10.0); %Lymphocytes 5.4 % (21.0-51.0); %Monocytes 8.9 % (0.0-10.0); %Neutrophils 83.5 % (42.0-75.0); Hematocrit 28.3 % (42.0-52.0); Hemoglobin 9.0 g/dL (14.0-18.0); Mean Corpuscular Hemoglobin 28.8 pg (27.0-31.0); Mean Corpuscular Volume 90.7 fL (78.0-98.0); Platelet Count 183 10x3/uL (130-400); Red Blood Cell (RBC) Count 3.12 mill/uL (4.70-6.10); White Blood Cell (WBC) Count 16.12 10x3/uL (4.8-10.8)
[2025-07-13 05:03] LABS: ALT (SGPT) 22 U/L (Less than 45); AST (SGOT) 33 U/L (11-34); Albumin 3.6 g/dL (3.1-4.5); Alkaline Phosphatase 117 U/L (40-110); Anion Gap 25 mmol/L (10-20); BUN (Urea Nitrogen) 65 mg/dL (8.4-25.7); Bilirubin, Total 0.6 mg/dL (0.3-1.2); Calc. Creatinine Clearance 10 mL/min (70-130); Calcium 8.9 mg/dL (7.8-10.44); Carbon Dioxide 23 mmol/L (22-29); Chloride 92 mmol/L (98-107); Globulin 4.1 g/dL (2.4-3.5); Glucose 128 mg/dL (70-105); Potassium 4.7 mmol/L (3.5-5.1); Sodium 135 mmol/L (136-145)
[2025-07-13] MEDS ORDERED: Enoxaparin 40 MG (0.4 mL) SYRINGE SC SCH (09:00)
[2025-07-13] MEDS ORDERED: cefTRIAXone\\ROCEPHIN 1 GM in Sodium Chloride 0.9% 100 ML IVPB SCH (09:00)
[2025-07-13] MEDS: DorzolamidE/Timolol 2%/0.5% Ophth Soln 10 ml Bottle EA EYE SCH (09:26)
[2025-07-13] MEDS: Brimonidine Tartrate 0.2% Ophth Soln 5 ml Bottle EA EYE SCH (09:26)
[2025-07-13] MEDS: Benzocaine/Menthol 1 LOZ LOZ PO PRN (09:27)
[2025-07-13] MEDS: Pantoprazole 40 MG DR.TAB PO SCH (09:27)
[2025-07-13] MEDS: Minoxidil 2.5 MG TAB PO SCH (09:29)
[2025-07-13 15:41] LABS: Hematocrit 27.2 % (42.0-52.0); Hemoglobin 8.6 g/dL (14.0-18.0); Platelet Count 175 10x3/uL (130-400)
[2025-07-13] MEDS: Heparin 10,000 UNITS/ 10 ML VIAL SLOW IVP SCH (19:08)
[2025-07-13 20:37] LABS: MONO NEGATIVE CONTROL ZONE White (Negative) (White); MONO POSITIVE CONTROL Pink Line (Positive) (PINK/RED); Mononucleosis NEGATIVE (NEGATIVE)
[2025-07-13 21:05] LABS: PTT 167.8 sec (22.9-36.1)
[2025-07-13 22:45] LABS: PTT 135.4 sec (22.9-36.1)
[2025-07-13] MEDS: Acetaminophen 325 MG TAB PO PRN (23:30)
[2025-07-14 01:43] LABS: HIV (1/2) Antibody/Antigen NONREACTIVE (NonReactive); HIV 1/2 INDEX 0.06 S/CO (<1.00)
[2025-07-14 04:04] LABS: #Basophils 0.03 10x3/uL (0.0-0.2); #Eosinophils 0.56 10x3/uL (0.0-0.7); #Monocytes 1.17 10x3/uL (0.11-0.59); #Neutrophils 7.94 10x3/uL (1.40-6.50); %Basophils 0.3 % (0.0-1.0); %Eosinophils 5.2 % (0.0-10.0); %Lymphocytes 9.6 % (21.0-51.0); %Monocytes 10.9 % (0.0-10.0); %Neutrophils 73.7 % (42.0-75.0); Hematocrit 26.8 % (42.0-52.0); Hemoglobin 8.4 g/dL (14.0-18.0); Mean Corpuscular Hemoglobin 28.9 pg (27.0-31.0); Mean Corpuscular Volume 92.1 fL (78.0-98.0); Platelet Count 167 10x3/uL (130-400); Red Blood Cell (RBC) Count 2.91 mill/uL (4.70-6.10); White Blood Cell (WBC) Count 10.76 10x3/uL (4.8-10.8)
[2025-07-14 04:21] LABS: ALT (SGPT) 24 U/L (Less than 45); AST (SGOT) 31 U/L (11-34); Albumin 3.5 g/dL (3.1-4.5); Alkaline Phosphatase 119 U/L (40-110); Anion Gap 19 mmol/L (10-20); BUN (Urea Nitrogen) 43 mg/dL (8.4-25.7); Bilirubin, Total 0.6 mg/dL (0.3-1.2); Calc. Creatinine Clearance 13 mL/min (70-130); Calcium 8.6 mg/dL (7.8-10.44); Carbon Dioxide 25 mmol/L (22-29); Chloride 96 mmol/L (98-107); Globulin 3.8 g/dL (2.4-3.5); Glucose 114 mg/dL (70-105); Potassium 4.1 mmol/L (3.5-5.1); Sodium 136 mmol/L (136-145)
[2025-07-14] MEDS: GUAIFENESIN SF SOLN 200 MG/10 ML UDCUP PO PRN (08:29)
[2025-07-14 09:16] LABS: Anisocytosis SLIGHT = 6-15 cells HPF (0-5); Burr Cells SLIGHT = 2-5 cells HPF (0-1); Platelet Adequacy Comment Platelets Normal; Polychromasia SLIGHT = 2-3 cells HPF (0-2); Smudge Cells 4.2 %
[2025-07-14 14:43] LABS: Syphilis Antibody Index 12.34 S/CO (<1.00 Non-Reactive)
[2025-07-14 17:02] LABS: Syphilis Titer Non-Reactive Titer (Nonreactive)
[2025-07-14] MEDS: HYDROcodone/Acetaminophen 5/325 mg Tablet PO SCH (17:39)
[2025-07-14] MEDS: Apixaban 5 MG TAB PO SCH (20:57)
[2025-07-15 04:59] LABS: #Basophils Less than 0.03 10x3/uL (0.0-0.2); #Eosinophils 0.57 10x3/uL (0.0-0.7); #Monocytes 0.97 10x3/uL (0.11-0.59); #Neutrophils 6.31 10x3/uL (1.40-6.50); %Basophils 0.2 % (0.0-1.0); %Eosinophils 6.3 % (0.0-10.0); %Lymphocytes 12.6 % (21.0-51.0); %Monocytes 10.7 % (0.0-10.0); %Neutrophils 69.6 % (42.0-75.0); Hematocrit 27.2 % (42.0-52.0); Hemoglobin 8.8 g/dL (14.0-18.0); Mean Corpuscular Hemoglobin 29.1 pg (27.0-31.0); Mean Corpuscular Volume 90.1 fL (78.0-98.0); Platelet Count 200 10x3/uL (130-400); Red Blood Cell (RBC) Count 3.02 mill/uL (4.70-6.10); White Blood Cell (WBC) Count 9.06 10x3/uL (4.8-10.8)
[2025-07-15 05:31] LABS: ALT (SGPT) 32 U/L (Less than 45); AST (SGOT) 41 U/L (11-34); Albumin 3.7 g/dL (3.1-4.5); Alkaline Phosphatase 156 U/L (40-110); Anion Gap 20 mmol/L (10-20); BUN (Urea Nitrogen) 53 mg/dL (8.4-25.7); Bilirubin, Total 0.6 mg/dL (0.3-1.2); Calc. Creatinine Clearance 10 mL/min (70-130); Calcium 8.6 mg/dL (7.8-10.44); Carbon Dioxide 26 mmol/L (22-29); Chloride 94 mmol/L (98-107); Globulin 4.3 g/dL (2.4-3.5); Glucose 140 mg/dL (70-105); Potassium 4.4 mmol/L (3.5-5.1); Sodium 136 mmol/L (136-145)
[2025-07-15] MEDS: Amoxicillin/Potassium Clav 875 MG TAB PO SCH ×2 (14:42→15:33)
[2025-07-15] MEDS: Amoxicillin/Potassium Clav 500 MG TAB PO SCH (15:24)
[2025-07-15] MEDS: EPOETIN ALFA-EPBX (ESRD) 10,000 UNITS/ML VIAL IVP SCH (15:25)
[2025-07-16 04:36] LABS: #Basophils 0.04 10x3/uL (0.0-0.2); #Eosinophils 0.56 10x3/uL (0.0-0.7); #Monocytes 1.00 10x3/uL (0.11-0.59); #Neutrophils 4.27 10x3/uL (1.40-6.50); %Basophils 0.6 % (0.0-1.0); %Eosinophils 7.9 % (0.0-10.0); %Lymphocytes 16.8 % (21.0-51.0); %Monocytes 14.1 % (0.0-10.0); %Neutrophils 60.2 % (42.0-75.0); Hematocrit 27.2 % (42.0-52.0); Hemoglobin 8.7 g/dL (14.0-18.0); Mean Corpuscular Hemoglobin 28.8 pg (27.0-31.0); Mean Corpuscular Volume 90.1 fL (78.0-98.0); Platelet Count 183 10x3/uL (130-400); Red Blood Cell (RBC) Count 3.02 mill/uL (4.70-6.10); White Blood Cell (WBC) Count 7.09 10x3/uL (4.8-10.8)
[2025-07-16 04:57] LABS: ALT (SGPT) 30 U/L (Less than 45); AST (SGOT) 34 U/L (11-34); Albumin 3.4 g/dL (3.1-4.5); Alkaline Phosphatase 147 U/L (40-110); Anion Gap 17 mmol/L (10-20); BUN (Urea Nitrogen) 34 mg/dL (8.4-25.7); Bilirubin, Total 0.5 mg/dL (0.3-1.2); Calc. Creatinine Clearance 13 mL/min (70-130); Calcium 8.1 mg/dL (7.8-10.44); Carbon Dioxide 29 mmol/L (22-29); Chloride 96 mmol/L (98-107); Globulin 3.9 g/dL (2.4-3.5); Glucose 119 mg/dL (70-105); Potassium 4.1 mmol/L (3.5-5.1); Sodium 138 mmol/L (136-145)
[2025-07-16] MEDS: Amoxicillin/Potassium Clav 500 MG TAB PO SCH (12:30)
[2025-07-16 13:19] VITALS: TEMP 98.2
[2025-07-16 15:41] VITALS: BP 164/88
[2025-07-16] MEDS ORDERED: Amoxicillin/Potassium Clav 500 MG TAB PO SCH (21:00)
[2025-07-18 11:30] LABS: ANA Symphony (Qualitative) Negative (Negative); ANA Symphony (Quantitative) 0.2 Ratio (< 0.7 Negative); dsDNA IgG Antibody 1.6 IU/mL (<10 Negative)
[2025-07-18 21:14] LABS: Myeloperoxidase AutoAbs <0.2 units (0.0-0.9); Proteinase-3 AutoAbs Less than 0.2 units (0.0-0.9)
== END 2025-07-16 15:35 | disposition home or self-care (01) | DRG 177 ==
LOC: ERS 05:36 → ERHOLD 08:44 → OBS 17:44 → 2NO 07-14 06:23
PROVIDERS: ADMIT Student in an Organized Health Care Education/Training Program; ATTEND Student in an Organized Health Care Education/Training Program
DX: J15.8 Pneumonia due to other specified bacteria (principal); N18.6 End stage renal disease; I13.2 Hypertensive heart and chronic kidney disease with heart failure and with stage 5 chronic kidney disease, or end stage renal disease; R04.2 Hemoptysis; I82.411 Acute embolism and thrombosis of right femoral vein; R59.0 Localized enlarged lymph nodes; E11.22 Type 2 diabetes mellitus with diabetic chronic kidney disease; F10.90 Alcohol use, unspecified, uncomplicated; I25.10 Atherosclerotic heart disease of native coronary artery without angina pectoris; E87.70 Fluid overload, unspecified; I44.0 Atrioventricular block, first degree; D63.1 Anemia in chronic kidney disease; I50.9 Heart failure, unspecified; Z95.5 Presence of coronary angioplasty implant and graft; Z98.890 Other specified postprocedural states; Z99.2 Dependence on renal dialysis; Z87.891 Personal history of nicotine dependence; I25.2 Old myocardial infarction; Z79.899 Other long term (current) drug therapy; Z79.82 Long term (current) use of aspirin
CPT/HCPCS: 36415; 36416; 71045; 71275; 74176; 80053; 82164; 83516; 83880; 84145; 84484; 85025; 85060; 85730; 86037; 86038; 86225; 86308; 86480; 86593; 86780; 87389; 90935; 93005; 93010; 94760; 96374; 96375; G0257; J0456; J0696; J1644; J2543; J7050; Q5105; Q9967

== ENCOUNTER 2025-09-16 11:49 | Emergency (ER) | payer MEDICAID ==
[2025-09-16] MEDS ORDERED: Acetaminophen 500 MG TAB ONE (12:31)
[2025-09-16] MEDS ORDERED: Proparacaine 0.5% Opth 15 ML BOT ONE (13:03)
== END 2025-09-16 17:35 | disposition home or self-care (01) ==
LOC: ERS 11:49
DX: M25.522 Pain in left elbow (principal); R60.0 Localized edema; E11.9 Type 2 diabetes mellitus without complications; I11.0 Hypertensive heart disease with heart failure; I50.9 Heart failure, unspecified; Z99.2 Dependence on renal dialysis; Z87.891 Personal history of nicotine dependence; W01.0XXA Fall on same level from slipping, tripping and stumbling without subsequent striking against object, initial encounter
CPT/HCPCS: 93923